=== PATIENT | female | born 1990 | race American Indian/Alaskan Native ===

== ENCOUNTER 2016-08-05 14:59 | Emergency (ER) | payer SELFPAY | END 2016-08-05 15:00 | disposition left against medical advice (07) | LOC: ED 14:59 | DX: R42 Dizziness and giddiness (principal); Y08.89XA Assault by other specified means, initial encounter; Y93.9 Activity, unspecified; Y92.89 Other specified places as the place of occurrence of the external cause; Y99.9 Unspecified external cause status; Z53.21 Procedure and treatment not carried out due to patient leaving prior to being seen by health care provider ==

== ENCOUNTER 2018-06-15 11:51 | Emergency (ER) | payer MEDICAID ==
[2018-06-15 12:10] VITALS: BP 124/71
[2018-06-15] MEDS ORDERED: ZOFRAN IV ONE (12:11)
[2018-06-15] MEDS ORDERED: MORPHINE IV ONE (12:11)
[2018-06-15] MEDS ORDERED: NACL 0.9% 1000 ML 1,000 ML IV ONE (12:11)
[2018-06-15] MEDS ORDERED: MORPHINE ONE (12:33)
[2018-06-15 12:50] LABS: Basophils % (Auto) 0.6 % (0.0-1.8); Eosinophils # (Auto) 0.3 K/mm3 (0.0-0.4); Eosinophils % (Auto) 3.6 % (0.0-4.3); Hematocrit 39.3 % (30.3-42.9); Hemoglobin 12.9 gm/dl (10.1-14.3); Lymphocytes # (Auto) 2.7 K/mm3 (1.2-5.4); Lymphocytes % (Auto) 32.8 % (13.4-35.0); Mean Corpuscular HGB Conc 33 % (30-34); Mean Corpuscular Volume 89 fl (79-97); Monocytes # (Auto) 0.7 K/mm3 (0.0-0.8); Red Blood Count 4.43 M/mm3 (3.65-5.03); Red Cell Distribution Width 15.3 % (13.2-15.2)
[2018-06-15 12:54] LABS: Platelet Count 218 K/mm3 (140-440)
[2018-06-15 13:21] LABS: Alanine Aminotransferase 9 units/L (7-56); Albumin 4.3 g/dL (3.9-5); BUN/Creatinine Ratio 11; Blood Urea Nitrogen 8 mg/dL (7-17); Calcium 8.9 mg/dL (8.4-10.2); Hemolysis Index 7
[2018-06-15 13:40] LABS: Bilirubin,Direct < 0.2 mg/dL (0-0.2)
--- NOTE | 2018-06-15 13:53 | Emergency Department Report ---
ED General Adult HPI - General Chief complaint: Abdominal Pain Stated complaint: ABD PAIN Time Seen by Provider: 06/15/18 12:09 Source: patient, EMS Mode of arrival: Ambulatory Limitations: No Limitations - History of Present Illness Initial comments: 28-year-old female complains of discomfort in the epigastric region of her abdomen. She states that it began this morning and does not radiate. She states that it is somewhat sharp. She denies any pain in her lower abdomen or back. She states that she has some diarrhea this morning. She is status post laparoscopic surgery for ectopic. She has a Norplant now. She states her period is currently on and heavy. She states the pain is "not due to cramps", however. -: Gradual Location: abdomen Radiation: non-radiation Quality: sharp Consistency: intermittent Improves with: none Associated Symptoms: denies other symptoms, other (diarrhea) Treatments Prior to Arrival: none - Related Data Previous Rx's Medication Instructions Recorded Last Taken Type Lansoprazole [Prevacid] 15 mg PO BID #30 cap 06/15/18 Unknown Rx Tramadol HCl [Ultram] 50 mg PO Q6H PRN #10 tablet 06/15/18 Unknown Rx Allergies Allergy/AdvReac Type Severity Reaction Status Date / Time No Known Allergies Allergy Unverified 06/15/18 12:09 ED Review of Systems ROS: Stated complaint: ABD PAIN Other details as noted in HPI Constitutional: denies: chills, fever Eyes: denies: eye pain, eye discharge, vision change ENT: denies: ear pain, throat pain Respiratory: denies: cough, shortness of breath, wheezing Cardiovascular: denies: chest pain, palpitations Endocrine: no symptoms reported Gastrointestinal: abdominal pain, diarrhea. denies: nausea Genitourinary: denies: urgency, dysuria, discharge Musculoskeletal: denies: back pain, joint swelling, arthralgia Skin: denies: rash, lesions Neurological: denies: headache, weakness, paresthesias Psychiatric: denies: anxiety, depression Hematological/Lymphatic: denies: easy bleeding, easy bruising ED Past Medical Hx - Past Medical History Previous Medical History?: No - Surgical History Past Surgical History?: Yes Additional Surgical History: fallopian tube removal - Social History Smoking Status: Current Every Day Smoker Substance Use Type: Marijuana - Medications Home Medications: Home Medications Medication Instructions Recorded Confirmed Last Taken Type Lansoprazole [Prevacid] 15 mg PO BID #30 cap 06/15/18 Unknown Rx Tramadol HCl [Ultram] 50 mg PO Q6H PRN #10 tablet 06/15/18 Unknown Rx ED Physical Exam - General Limitations: No Limitations General appearance: alert, in no apparent distress - Head Head exam: Present: atraumatic, normocephalic - Eye Eye exam: Present: normal appearance. Absent: scleral icterus - ENT ENT exam: Present: mucous membranes moist - Neck Neck exam: Present: normal inspection. Absent: tenderness, meningismus - Respiratory Respiratory exam: Present: normal lung sounds bilaterally. Absent: respiratory distress - Cardiovascular Cardiovascular Exam: Present: regular rate, normal rhythm. Absent: systolic murmur, diastolic murmur, rubs, gallop - GI/Abdominal GI/Abdominal exam: Present: soft, normal bowel sounds. Absent: distended, tenderness, guarding, rebound, rigid, organomegaly, mass, bruit, pulsatile mass, hernia - Extremities Exam Extremities exam: Present: normal inspection - Back Exam Back exam: Present: normal inspection - Neurological Exam Neurological exam: Present: alert, oriented X3 - Psychiatric Psychiatric exam: Present: normal affect, normal mood - Skin Skin exam: Present: warm, dry, intact, normal color. Absent: rash ED Course Vital Signs 06/15/18 12:07 Blood Pressure 124/71 - Reevaluation(s) Reevaluation #1: Symptoms have resolved. Patient resting comfortably. Abdominal exam persistently benign. 06/15/18 14:26 ED Medical Decision Making - Lab Data Result diagrams: 06/15/18 12:37 06/15/18 12:37 Laboratory Results - last 24 hr 06/15/18 06/15/18 06/15/18 12:37 12:37 12:37 WBC 8.2 RBC 4.43 Hgb 12.9 Hct 39.3 MCV 89 MCH 29 MCHC 33 RDW 15.3 H Plt Count 218 Lymph % (Auto) 32.8 [place] % (Auto) 9.0 H Eos % (Auto) 3.6 Baso % (Auto) 0.6 Lymph # 2.7 [place] # 0.7 Eos # 0.3 Baso # 0.0 Seg Neutrophils % 54.0 Seg Neutrophils # 4.4 Sodium 142 Potassium 4.0 Chloride 106.4 Carbon Dioxide 24 Anion Gap 16 BUN 8 Creatinine 0.7 Estimated GFR > 60 BUN/Creatinine Ratio 11 Glucose 85 Calcium 8.9 Total Bilirubin 0.20 Direct Bilirubin < 0.2 Indirect Bilirubin 0.0 AST 11 ALT 9 Alkaline Phosphatase 63 Total Protein 7.1 Albumin 4.3 Albumin/Globulin Ratio 1.5 Lipase 26 HCG, Quant < 2 Urine Color Urine Turbidity Urine pH Ur Specific [place] Urine Protein Urine Glucose (UA) Urine Ketones Urine Blood Urine Nitrite Urine Bilirubin Urine Urobilinogen Ur Leukocyte Esterase Urine WBC (Auto) Urine RBC (Auto) U Epithel Cells (Auto) Urine Mucus Urine HCG, Qual Blood Type Antibody Screen 06/15/18 06/15/18 12:37 13:25 WBC RBC Hgb Hct MCV MCH MCHC RDW Plt Count Lymph % (Auto) [place] % (Auto) Eos % (Auto) Baso % (Auto) Lymph # [place] # Eos # Baso # Seg Neutrophils % Seg Neutrophils # Sodium Potassium Chloride Carbon Dioxide Anion Gap BUN Creatinine Estimated GFR BUN/Creatinine Ratio Glucose Calcium Total Bilirubin Direct Bilirubin Indirect Bilirubin AST ALT Alkaline Phosphatase Total Protein Albumin Albumin/Globulin Ratio Lipase HCG, Quant Urine Color Yellow Urine Turbidity Clear Urine pH 5.0 Ur Specific [place] 1.009 Urine Protein <15 mg/dl Urine Glucose (UA) Neg Urine Ketones Neg Urine Blood Mod Urine Nitrite Neg Urine Bilirubin Neg Urine Urobilinogen < 2.0 Ur Leukocyte Esterase Neg Urine WBC (Auto) 2.0 Urine RBC (Auto) 9.0 U Epithel Cells (Auto) < 1.0 Urine Mucus Few Urine HCG, Qual Negative Blood Type A POSITIVE Antibody Screen Negative Critical care attestation.: If time is entered above; I have spent that time in minutes in the direct care of this critically ill patient, excluding procedure time. ED Disposition Clinical Impression: Abdominal pain Qualifiers: Abdominal location: epigastric Qualified Code(s): R10.13 - Epigastric pain Disposition: DC-01 TO HOME OR SELFCARE Is pt being admited?: No Does the pt Need Aspirin: No Condition: Stable Instructions: Abdominal Pain (ED) Additional Instructions: Avoid stomach irritation by aspirin, Advil, alcohol or other medication. Rx Prevacid. Follow-up with family physician. Return when necessary any acute change or recurrent symptoms. Prescriptions: Lansoprazole [Prevacid] 15 mg PO BID #30 cap Tramadol HCl [Ultram] 50 mg PO Q6H PRN #10 tablet PRN Reason: pain Referrals: [facility] [Provider Group] - 2-3 Days Time of Disposition: 14:27
[2018-06-15 14:01] LABS: Bilirubin,Urine NEG (Negative); Blood,Urine MOD (Negative); Color,Urine Yellow (Yellow); Mucus,Urine FEW /HPF; Protein,Urine <15 mg/dL mg/dL (Negative); Urobilinogen,Urine < 2.0 mg/dL (<2.0)
[2018-06-15 14:08] LABS: HCG Qualitative,Urine Negative (Negative)
== END 2018-06-15 14:30 | disposition home or self-care (01) ==
LOC: ED 11:51
DX: R10.13 Epigastric pain (principal); R19.7 Diarrhea, unspecified; F17.200 Nicotine dependence, unspecified, uncomplicated
CPT/HCPCS: 36415; 80048; 80076; 81001; 81025; 83690; 84702; 85025; 86850; 86900; 86901; 96361; 96374; 96375; 99284; J2270; J2405; J7030